=== PATIENT | female | born 1945 ===

== ENCOUNTER 2016-11-15 09:30 | Day surgery (SDC) | payer MEDICARE, OTHER ==
[2016-11-15 09:53] VITALS: BMI 30.9
[2016-11-15] MEDS ORDERED: Lactated Ringer's 500 ML IV ONE (10:12)
[2016-11-15] MEDS ORDERED: Propofol 10 mg/ml Inj (20 ML) ONE ×4 (10:18→11:27)
[2016-11-15 10:25] VITALS: O2SAT 100
[2016-11-15 10:40] VITALS: TEMP 97.7
[2016-11-15 10:48] VITALS: RESP 12
[2016-11-15] MEDS ORDERED: Esmolol 100 mg/10ml Inj IV ONE (11:07)
[2016-11-15 11:45] VITALS: BP 122/62; PULSE 53
== END 2016-11-15 11:30 | disposition home or self-care (01) ==
LOC: C.ENDO 09:30
PROVIDERS: ATTEND Internal Medicine Gastroenterology
DX: Z12.11 Encounter for screening for malignant neoplasm of colon (principal); K64.2 Third degree hemorrhoids; K64.4 Residual hemorrhoidal skin tags; K57.30 Diverticulosis of large intestine without perforation or abscess without bleeding; E78.5 Hyperlipidemia, unspecified; E66.9 Obesity, unspecified; I10 Essential (primary) hypertension; M19.90 Unspecified osteoarthritis, unspecified site; M85.80 Other specified disorders of bone density and structure, unspecified site; F32.9 Major depressive disorder, single episode, unspecified; E83.52 Hypercalcemia
CPT/HCPCS: G0121; J2001; J2704; J3010; J7120